=== PATIENT | female | born 1965 | race Two or more races ===

== ENCOUNTER 2016-08-01 00:35 | Emergency (ER) | payer MEDICAID ==
[~2016-08-01] VITALS: Ht 157.5 cm; Wt 69.9 kg
[~2016-08-01 00:35] MED LIST: ALPR0.255 PO; AMLO5TAB2 PO; ASPI81TA31 PO; ESOM20CA PO; HYDR25TA4 PO; LOSA100T15 PO
[2016-08-01] MEDS ORDERED: PANTOPRAZOLE SODIUM IV 40 MG in IV DEXTROSE 5% 100 ML IV ONE ×4 (01:30)
[2016-08-01] MEDS ORDERED: LORAZEPAM 0.5 MG TABLET PO ONE (01:30)
[2016-08-01 01:31] LABS: BASOPHILS # (AUTO) 0.1 K/uL (0.0-0.2); BASOPHILS % (AUTO) 0.7 % (0.0-2.0); EOSINOPHILS # (AUTO) 0.1 K/uL (0.0-0.7); EOSINOPHILS % (AUTO) 1.6 % (0.0-7.0); HEMATOCRIT 45.2 % (37.0-47.0); LYMPHOCYTES # (AUTO) 3.4 K/uL (0.8-4.8); LYMPHOCYTES % (AUTO) 37.1 % (20.5-51.5); MEAN CORPUSCULAR HEMOGLOBIN 30.5 uug (27.0-31.0); MEAN CORPUSCULAR HGB CONC 33 g/dL (32.0-37.0); MONOCYTES # (AUTO) 0.5 K/uL (0.1-1.30); MONOCYTES % (AUTO) 5.8 % (0.0-11.0); NEUTROPHILS % (AUTO) 54.8 % (38.5-71.5); PLATELET COUNT (AUTO) 239 K/uL (150-450); RED BLOOD CELL COUNT(AUTO) 4.91 MIL/uL (4.20-5.40); RED CELL DISTRIBUTION WIDTH 11.9 % (11.5-14.5); WHITE BLOOD COUNT (AUTO) 9.1 K/uL (4.0-11.2)
[2016-08-01 01:40] LABS: CALCIUM 9.2 mg/dL (8.5-10.1); CREATININE 0.7 mg/dL (0.6-1.3); POTASSIUM 3.9 mmol/L (3.5-5.1)
[2016-08-01] MEDS ORDERED: LORAZEPAM 0.5 MG TABLET ONE (01:53)
[2016-08-01] MEDS ORDERED: PANTOPRAZOLE SODIUM 40 MG VIAL ONE (01:54)
--- NOTE | 2016-08-01 03:08 | NUR ---
[facility] COMPLETED IN [address] DEE'S ORDER. SEE EMERGENCY DEPARTMENT PHYSICIAN RECORDS/ADDITIONAL ORDERS.
--- NOTE | 2016-08-01 03:40 | NUR ---
Patient discharged to home in stable conditon. Written and verbal after care instructions given. Patient verbalizes understanding of instructions.
[2016-08-01 03:43] VITALS: BP 143/87
== END 2016-08-01 03:40 | disposition home or self-care (01) ==
LOC: ER 00:35
DX: R07.89 Other chest pain (principal); F41.9 Anxiety disorder, unspecified; F43.9 Reaction to severe stress, unspecified; I10 Essential (primary) hypertension; E78.5 Hyperlipidemia, unspecified; K21.9 Gastro-esophageal reflux disease without esophagitis; Z79.82 Long term (current) use of aspirin
CPT/HCPCS: 36415; 71010; 80048; 84484; 85025; 85730; 93005; 96365; 99285; A4663; C9113; J7060; 70030-TC

== ENCOUNTER 2016-12-12 18:23 | Emergency (ER) | payer MEDICAID ==
[~2016-12-12] VITALS: Ht 162.6 cm; Wt 74.4 kg
--- NOTE | 2016-12-12 19:00 | NUR ---
RECEIVED REPORT FROM [employer] NURSE, PT ALERT, ORIENTED X 4, NO RESP DISTRESS NOTED OR REPORTED UPON ASSESSMENT... PT HERE FOR BACK AND FLANK PAIN RADIATING TO ABDOMEN PAIN 12/13...
[2016-12-12] MEDS ORDERED: IV NORMAL SALINE 1000 ML BAG IV ONE (19:30)
[2016-12-12] MEDS ORDERED: HYDROMORPHONE 1 MG/1 ML DISP.SYRIN IV ONE (19:30)
[2016-12-12] MEDS ORDERED: ONDANSETRON 4 MG/2 ML VIAL IV ONE (19:30)
[2016-12-12] MEDS ORDERED: ONDANSETRON 4 MG/2 ML VIAL ONE ×2 (19:34→20:38)
[2016-12-12] MEDS ORDERED: HYDROMORPHONE 1 MG/1 ML DISP.SYRIN ONE (19:34)
[2016-12-12 19:45] LABS: *BILIRUBIN,URIN NEGATIVE (NEGATIVE); *BLOOD, URINE 1+ (NEGATIVE); *CLARITY,URINE SLIGHTLY CLOUDY (CLEAR); *COLOR,URINE YELLOW (YELLOW); *KETONES,URINE NEGATIVE (NEGATIVE); *PROTEIN,URINE NEGATIVE (NEGATIVE); LEUKOCYTE ESTERASE ,URINE 1+ (NEGATIVE); NITRITE, URINE NEGATIVE (NEGATIVE); PH,URINE 6.5 (5.0-8.0); UGLUCOSE NEGATIVE (NEGATIVE)
[2016-12-12 19:50] LABS: BASOPHILS % (AUTO) 0.1 % (0.0-2.0); EOSINOPHILS # (AUTO) 0.1 K/uL (0.0-0.7); EOSINOPHILS % (AUTO) 0.9 % (0.0-7.0); HEMATOCRIT 41.6 % (37-47); HEMOGLOBIN 13.8 G/DL (12.0-16.0); LYMPHOCYTES # (AUTO) 1.4 K/UL (0.8-4.8); LYMPHOCYTES % (AUTO) 13.2 % (20.5-51.5); MEAN CORPUSCULAR HEMOGLOBIN 30.7 UUG (27.0-31.0); MEAN CORPUSCULAR HGB CONC 33 g/dL (32.0-37.0); MEAN CORPUSCULAR VOLUME 92.8 FL (81.0-99.0); MONOCYTES # (AUTO) 0.6 K/UL (0.1-1.30); MONOCYTES % (AUTO) 5.9 % (0.0-11.0); NEUTROPHILS # (AUTO) 8.3 K/UL (1.8-8.9); NEUTROPHILS % (AUTO) 79.9 % (38.5-71.5); PLATELET COUNT (AUTO) 238 K/UL (150-450); RED BLOOD CELL COUNT(AUTO) 4.48 MIL/UL (4.2-5.4); WHITE BLOOD COUNT (AUTO) 10.4 K/UL (4.0-11.2)
[2016-12-12 19:51] LABS: CREATININE 0.7 mg/dL (0.6-1.3); POTASSIUM 3.7 mmol/L (3.5-5.1)
[2016-12-12 19:56] LABS: BILIRUBIN,DIRECT 0.2 mg/dL (0.0-0.2); BILIRUBIN,TOTAL 0.4 mg/dL (0.2-1.0); TOTAL PROTEIN, SERUM 7.9 g/dL (6.4-8.2)
--- NOTE | 2016-12-12 20:05 | NUR ---
CT TAKING PT TO SCAN VIA GURNEY... PT AWAKE, ALERT, ORIENTED X 4, NO DISTRESS NOTED OR REPORTED
[2016-12-12 20:06] LABS: SQUAMOUS EPITHELIAL CELL,UR FEW /HPF (NONE SEEN); URINE AMORPHOUS PHOSPHATES MODERATE /HPF
[2016-12-12 20:07] LABS: MUCUS,URINE MANY /LPF (0-FEW)
[2016-12-12] MEDS ORDERED: ONDANSETRON IV *ER 4 MG/2 ML VIAL IV ONE (20:30)
[2016-12-12] MEDS ORDERED: CEFTRIAXONE 1 G in IV DEXTROSE 5% 50 ML IV ONE (21:15)
[2016-12-12] MEDS ORDERED: CEFTRIAXONE 1 G VIAL ONE (21:38)
--- NOTE | 2016-12-12 22:56 | NUR ---
Patient discharged to home in stable conditon. Written and verbal after care instructions given. Patient verbalizes understanding of instructions. Pt walked out of ER unassisted with belongings and at side...
[2016-12-12 23:00] VITALS: BP 137/78
== END 2016-12-12 23:01 | disposition home or self-care (01) ==
LOC: ER 18:23
DX: N39.0 Urinary tract infection, site not specified (principal); Z79.82 Long term (current) use of aspirin
CPT/HCPCS: 36415; 83690; 84703; 85025; 87086; A4663; J0696; J1170; J2405; J7030; J7060

== ENCOUNTER 2018-03-28 12:27 | Emergency (ER) | payer MEDICAID ==
[~2018-03-28] VITALS: Ht 160 cm; Wt 80.7 kg
[~2018-03-28 12:27] MED LIST changes: -ALPR0.255 PO; -AMLO5TAB2 PO; +AMLO5TAB7 PO; -ESOM20CA PO; -HYDR25TA4 PO
--- NOTE | 2018-03-28 12:44 | NUR ---
PT IS IN ROOM #1A. DR MARTIN EVALUATED THE PT.
[2018-03-28] MEDS ORDERED: IV NORMAL SALINE 500 ML BAG IV ONE (12:45)
[2018-03-28] MEDS ORDERED: NITROGLYCERIN 0.4 MG/TAB BOTTLE SL ONE ×2 (12:45→12:49)
[2018-03-28 12:54] LABS: BASOPHILS % (AUTO) 0.3 % (0.0-2.0); EOSINOPHILS # (AUTO) 0.1 K/uL (0.0-0.7); EOSINOPHILS % (AUTO) 0.8 % (0.0-7.0); HEMATOCRIT 42.5 % (31.2-41.9); HEMOGLOBIN 14.2 g/dL (10.9-14.3); LYMPHOCYTES % (AUTO) 19.6 % (20.5-51.5); MEAN CORPUSCULAR HEMOGLOBIN 31.9 uug (24.7-32.8); MEAN CORPUSCULAR HGB CONC 34 g/dL (32.3-35.6); MEAN CORPUSCULAR VOLUME 95.4 fL (75.5-95.3); MONOCYTES # (AUTO) 0.5 K/uL (2.0-10.0); MONOCYTES % (AUTO) 5.3 % (0.0-11.0); NEUTROPHILS # (AUTO) 7.7 K/uL (1.8-8.9); PLATELET COUNT (AUTO) 254 K/uL (179-408); RED BLOOD CELL COUNT(AUTO) 4.46 MIL/uL (3.63-4.92); WHITE BLOOD COUNT (AUTO) 10.4 K/uL (3.8-11.8)
[2018-03-28 13:03] LABS: CREATININE 0.6 mg/dL (0.6-1.3)
[2018-03-28 13:19] LABS: BILIRUBIN,DIRECT 0.1 mg/dL (0.0-0.2); BILIRUBIN,TOTAL 0.2 mg/dL (0.2-1.0)
--- NOTE | 2018-03-28 13:28 | NUR ---
PT WAS D/C TO HOME. D/C INSTRUCTIONS GIVEN TO THE PT.
[2018-03-28 13:29] VITALS: BP 140/88
== END 2018-03-28 13:30 | disposition home or self-care (01) ==
LOC: ER 12:31
DX: H92.02 Otalgia, left ear (principal); R07.89 Other chest pain; I10 Essential (primary) hypertension; Z79.82 Long term (current) use of aspirin; Z79.899 Other long term (current) drug therapy
CPT/HCPCS: 36415; 70030-TC; 71045; 85025; 85730; 93005; A4663; J7030

== ENCOUNTER 2021-04-11 13:20 | Emergency (ER) | payer MEDICAID ==
[~2021-04-11] VITALS: Ht 160 cm; Wt 77.1 kg
[~2021-04-11 13:20] MED LIST changes: +AMLO-212 PO; -AMLO5TAB7 PO; -LOSA100T15 PO; +LOSA100T31 PO
[2021-04-11 13:55] LABS: HEMATOCRIT 43.2 % (31.2-41.9); MEAN CORPUSCULAR HEMOGLOBIN 32.1 uug (24.7-32.8); MEAN CORPUSCULAR VOLUME 93.6 fL (75.5-95.3); PLATELET COUNT (AUTO) 237 K/uL (179-408)
[2021-04-11 13:58] LABS: CREATININE 0.7 mg/dL (0.6-1.3); POTASSIUM 4.4 mmol/L (3.5-5.1)
--- NOTE | 2021-04-11 14:00 | NUR ---
EKG done, saline lock placed, labs collected. Pt resting in NAD at this time. Aware of plan to await lab results.
[2021-04-11 14:04] LABS: BILIRUBIN,DIRECT 0.1 mg/dL (0.0-0.2); BILIRUBIN,TOTAL 0.3 mg/dL (0.2-1.0); TOTAL PROTEIN, SERUM 8.2 g/dL (6.4-8.2)
[2021-04-11] MEDS ORDERED: CARI350T PO (14:39)
--- NOTE | 2021-04-11 14:52 | NUR ---
Patient discharged to home in stable condition. Saline lock removed, clear and intact. Written and verbal after care instructions given. Patient verbalizes understanding of instructions. Stressed follow up or return to ER for worsening s/s.
[2021-04-11 14:53] VITALS: BP 151/87
== END 2021-04-11 14:50 | disposition home or self-care (01) ==
LOC: ER 13:20
DX: R07.9 Chest pain, unspecified (principal); Z79.82 Long term (current) use of aspirin; Z79.899 Other long term (current) drug therapy
CPT/HCPCS: 36415; 70030-TC; 71045; 85025; A4663

== ENCOUNTER 2022-03-20 15:30 | Emergency (ER) | payer MEDICAID, OTHER ==
[~2022-03-20] VITALS: Ht 154.9 cm; Wt 71.2 kg
[~2022-03-20 15:30] MED LIST changes: -AMLO-212 PO; -ASPI81TA31 PO; +CARI350T PO
[2022-03-20] MEDS ORDERED: AMLO-212 PO (15:43)
--- NOTE | 2022-03-20 16:00 | NUR ---
Pt. walked to the ER c/o intermittent chest pain exacerbated by physical movement. Per patient, symptoms started last night while she was working. Denies n/v and SOB. Hx Hypertension. evaluated patient at bedside.
[2022-03-20] MEDS ORDERED: ASPIRIN 81 MG TAB.CHEW ONE (16:12)
[2022-03-20] MEDS ORDERED: ASPIRIN 81 MG TAB.CHEW PO ONE (16:15)
[2022-03-20 16:50] LABS: HEMATOCRIT 44.7 % (31.2-41.9); MEAN CORPUSCULAR HEMOGLOBIN 31.3 uug (24.7-32.8); MEAN CORPUSCULAR VOLUME 94.8 fL (75.5-95.3); PLATELET COUNT (AUTO) 248 K/uL (179-408)
[2022-03-20 16:59] LABS: CARBON DIOXIDE 32 mmol/L (21-32); CHLORIDE 105 mmol/L (98-107); CREATININE 0.6 mg/dL (0.6-1.3); GLUCOSE 98 mg/dL (74-106); UREA NITROGEN, BLOOD 14 mg/dL (7-18)
[2022-03-20 17:06] LABS: ALANINE AMINOTRANSFERASE 31 U/L (14-59); ALKALINE PHOSPHATASE 105 U/L (50-136); ASPARTATE AMINOTRANSFERASE 17 U/L (15-37); BILIRUBIN,DIRECT 0.1 mg/dL (0.0-0.2); BILIRUBIN,TOTAL 0.3 mg/dL (0.2-1.0); TOTAL PROTEIN, SERUM 8.1 g/dL (6.4-8.2)
[2022-03-20] MEDS ORDERED: LORAZEPAM 0.5 MG TABLET ONE (18:34)
[2022-03-20] MEDS ORDERED: LORAZEPAM 0.5 MG TABLET PO ONE (18:45)
[2022-03-20] MEDS ORDERED: AMLODIPINE 5 MG TABLET PO ONE (19:15)
[2022-03-20] MEDS ORDERED: AMLODIPINE 5 MG TABLET ONE (19:31)
--- NOTE | 2022-03-20 21:45 | NUR ---
Patient discharged to home in stable condition. Written and verbal after care instructions given. Patient verbalizes understanding of instructions. Stressed follow up or return to ER for worsening s/s. Patient is a/ox4, NAD noted. Patient is able to walk with steady gait
[2022-03-20 21:51] VITALS: BP 142/98
== END 2022-03-20 21:45 | disposition home or self-care (01) ==
LOC: ER 15:30
DX: R07.9 Chest pain, unspecified (principal); I10 Essential (primary) hypertension; Z83.3 Family history of diabetes mellitus; Z82.49 Family history of ischemic heart disease and other diseases of the circulatory system; Z20.822 Contact with and (suspected) exposure to COVID-19; F41.9 Anxiety disorder, unspecified
CPT/HCPCS: 36415; 71045; 84484; 85025; 93005; A4663